=== PATIENT | male | born 1955 | race Caucasian/White ===

== ENCOUNTER 2022-08-19 07:35 | Emergency (ER) | payer MEDICARE, MEDICAID, SELFPAY ==
[2022-08-19] VITALS (49 sets, daily range): BP systolic 94–136; BP diastolic 57–82; PULSE 56–87; RESP 12–20; TEMP 37; O2SAT 95–100
--- NOTE | 2022-08-19 08:13 | ED.NAVMDI ---
HPI - Nausea/Vomiting/Diarrhea General Chief complaint: Nausea/Vomiting/Diarrhea Stated complaint: n/v- blood Time Seen by Provider: 08/19/22 07:56 Source: patient, EMS and RN notes reviewed Mode of arrival: EMS History of Present Illness HPI Narrative: THis is a 67 year old male with history of esophageal stricture, suprapubic catheter who presents for evaluation of vomiting blood patient. He states he has history of esophageal dilation and hematemesis in the past. He reports he has hole in his throat that is the source of the blood. This morning he reports vomiting bright red blood x 4. His last episode of emesis only has brown streaks present so he reports it is improving. He denies dizziness, lightheadedness or melena. He has ileostomy with green stool output. He states he is scheduled to have dilation performed at [place] on august 28. He states he asked to be taken to [facility] this morning so he is wondering why he is here. Related Data Allergies Allergy/AdvReac Type Severity Reaction Status Date / Time No Known Allergies Allergy Verified 08/19/22 07:49 Review of Systems Constitutional: Constitutional: Denies weakness Cardiovascular: Cardiovascular: Denies syncope, Denies rapid heart rate, Denies irregular heart rhythm, Denies leg edema and Denies dyspnea Respiratory: Respiratory: Denies chest congestion, Denies hemoptysis, Denies excessive phlegm production and Denies dyspnea Gastrointestinal: Gastrointestinal: Denies abdominal pain, Denies hematochezia, Denies diarrhea, Reports nausea and Reports vomiting Genitourinary: Genitourinary: Denies hematuria, Denies dysuria, Denies penile discharge and Denies testicular pain Musculoskeletal: Musculoskeletal: Denies joint swelling, Denies loss of height and Denies muscle weakness Neurologic: Denies syncope, Denies focal weakness and Denies weakness PMFSH Past Medical History Medical History (Updated 08/20/22 @ 09:49 by Susana Knott MD) Dysphagia Emphysema/COPD GERD (gastroesophageal reflux disease) Hyperlipidemia Hypotension Schizoaffective disorder Surgical History Surgical History (Updated 08/19/22 @ 08:18 by Susana Knott MD) History of suprapubic catheter History of tracheostomy Social History Social History (Updated 08/19/22 @ 18:57 by Susana Knott MD) Smoking status: Former smoker Alcohol intake: unknown Living arrangements: correction Gender identity (if verbalized by the patient): Male Exam Const: General: alert Nutritional Appearance: well nourished Orientation/consciousness: patient oriented x3 HENMT: Head: normal to inspection Eyes: EOM: EOMs intact bilaterally Chest: Chest palpation & inspection: normal inspection of the chest Resp: Effort & Inspection: normal respiratory effort Auscultation: clear to auscultation bilaterally Cardio: Rate: regular rate Rhythm: regular rhythm Heart sounds: no murmurs GI: GI Palp: Yes Soft to palpation, No Tenderness to palpation present (GI), No Guarding due to palpation present (GI) and No Rigid due to palpation Auscultation: normal bowel sounds Other: right side colostomy - with bright green stool Urinary Catheter: Urinary Catheter: patent and draining (suprapubic catheter in place) Skin: General skin exam: normal color Rashes: no rashes Wounds: no wounds Neuro: General: patient oriented x3, moves all extremities and CN's II-XI intact bilaterally Extrem: General: normal to inspection Psych: Mental Status: mental status grossly normal Affect: normal affect Attitude: cooperative Course Reevaluation(s) Reevaluation #1: Patient is awaiting transfer to [facility] for GI consultation for vomiting blood with history of esophageal disease. Patient has been stable with stable Hemoglobin. Care turned over to DR. Matamoros. Date: 08/19/22 Time: 20:07 Reevaluation #2: Patient has been walking around and eating and drinking. No nausea or vomiting. Hemoglobin has increase
[2022-08-19 08:17] LABS: Basophils Absolute Auto 0.1 K/mm3 (0.0-0.1); Basophils Percent Auto 1.4 % (0.2-1.2); Eosinophils Absolute Auto 0.1 K/mm3 (0-0.3); Eosinophils Percent Auto 3.4 % (0-4.4); Hematocrit 33.3 % (42.0-52.0); Hemoglobin 10.6 g/dL (14.0-18.0); Immature Granulocyte Absolute 0.06 K/mm3 (0.00-0.031); Immature Granulocyte Percent A 1.7 % (0-0.5); Lymphocytes Absolute Auto 0.52 K/mm3 (0.9-3.2); Lymphocytes Percent Auto 14.6 % (18.3-44.2); Mean Corpuscular HGB Conc 31.8 g/dl (32-36); Mean Corpuscular Volume 87.9 fl (80-100); Mean Platelet Volume 10.1 fl (7.4-10.4); Monocytes Absolute Auto 0.5 K/mm3 (0.1-0.6); Monocytes Percent Auto 12.6 % (2.6-8.5); Neutrophils Absolute Auto 2.4 K/mm3 (1.3-6.7); Neutrophils Percent Auto 66.3 % (45.5-73.1); Platelet Count Result 129 k/mm3 (150-375); Red Blood Count 3.79 M/mm3 (4.6-6.20); Red Cell Distribution Width 18.3 % (11.5-14.5); White Blood Count 3.6 K/mm3 (4.5-10.0)
[2022-08-19 08:27] LABS: Alanine Aminotransferase 51 U/L (6-50); Albumin Level 3.5 g/dL (3.5-5.1); Alkaline Phosphatase 67 U/L (38-126); Anion Gap 2 mmol/L (8-16); Aspartate Amino Transferase 48 U/L (17-59); Bilirubin,Total 0.6 mg/dL (0.2-1.3); Blood Urea Nitrogen 22 mg/dL (9-20); Calcium 8.5 mg/dL (8.4-10.2); Carbon Dioxide 30 mmol/L (22-30); Chloride 99 mmol/L (98-107); Estimated CRCL calculation 107 ml/min; Estimated Glomerular Filt Rate > 60; Glucose 98 mg/dL (65-110); Lipase 33 U/L (23-300); Potassium 4.7 mmol/L (3.4-5.0); Sodium 131 mmol/L (137-145)
[2022-08-19 08:43] LABS: INR 1.1; Prothrombin Time 13.5 Seconds (11.1-14.7)
[2022-08-19 08:44] LABS: Partial Thromboplastin Time 28.1 SECONDS (22.3-36.8)
[2022-08-19] MEDS: PANTOPRAZOLE SODIUM IV 40 MG VIAL 80 MG IV PUSH (10:41)
--- NOTE | 2022-08-19 11:11 | PC.NURSE ---
report received from Joel ANGULO at this time including plan of care
--- NOTE | 2022-08-19 11:20 | PC.NURSE ---
spoke to [facility] transfer center at this time. Per transfer center, patient will not be receiving bed today and will most likely be on waiting list for several days. Dr Knott notified at this time.
[2022-08-19 12:52] LABS: Hematocrit 33.6 % (42.0-52.0); Hemoglobin 10.7 g/dL (14.0-18.0)
--- NOTE | 2022-08-19 13:05 | PC.NURSE ---
spoke to [facility] facility nurse at this time and updated regarding patient's plan of care and transfer
--- NOTE | 2022-08-19 15:46 | PC.NURSE ---
@ 12:20 pt accepted at [facility] placed on waitlist for bed
[2022-08-19] MEDS: SODIUM CHLORIDE 0.9% IV 1,000 ML 150 ML IV CONT (19:40)
[2022-08-19 19:58] LABS: Hematocrit 37.5 % (42.0-52.0)
[2022-08-20] VITALS (35 sets, daily range): BP systolic 114–128; BP diastolic 68–84; PULSE 52–100; RESP 16; O2SAT 94–100
--- NOTE | 2022-08-20 00:25 | PC.NURSE ---
Changed catheter bag due to sediment in line, and not draining. Currently draining to gravity.
[2022-08-20 06:10] LABS: Hematocrit 34.7 % (42.0-52.0); Hemoglobin 11.1 g/dL (14.0-18.0)
--- NOTE | 2022-08-20 09:58 | PC.NURSE ---
pt to be discharged due to stable h & h. [facility] unable to milk pickup driver pt due to them being with another pt. will contact em[facility] for transport.
--- NOTE | 2022-08-20 10:17 | PC.NURSE ---
ems contacted for transport back to [facility]. pt pacing in hallway. easily redirected for short period of time.
== END 2022-08-20 12:40 ==
PROVIDERS: Emergency Medicine; Emergency Provider General Practice; PCP Hospitalist
DX: K92.0 Hematemesis (principal); J43.9 Emphysema, unspecified; E78.5 Hyperlipidemia, unspecified; K21.9 Gastro-esophageal reflux disease without esophagitis; Z93.2 Ileostomy status
CPT/HCPCS: 36415; 80053; 83690; 85014; 85018; 85025; 85610; 85730; 86850; 86900; 86901; 99283; C9113; J7030